=== PATIENT | female | born 1970 | race Caucasian/White ===

== ENCOUNTER 2017-07-29 12:02 | Emergency (ER) | payer OTHER ==
[~2017-07-29] VITALS: Ht 167.6 cm; Wt 104.2 kg
[~2017-07-29 12:02] MED LIST: ALLEGRA D PO; AVENTYL,PAMELOR10 MG PO; Protonix PO; TYLENOL650 MG PR
[2017-07-29 12:20] VITALS: BP 148/82
[2017-07-29] MEDS ORDERED: FLEXERIL10 MG PO (15:19)
[2017-07-29] MEDS ORDERED: MOTRIN800 MG PO (15:19)
== END 2017-07-29 15:46 | disposition home or self-care (01) ==
LOC: EME 12:02
DX: S29.011A Strain of muscle and tendon of front wall of thorax, initial encounter (principal); M62.838 Other muscle spasm; X58.XXXA Exposure to other specified factors, initial encounter; Y93.84 Activity, sleeping; Z88.2 Allergy status to sulfonamides
CPT/HCPCS: 71100; 99281; 99284

== ENCOUNTER 2017-08-04 15:55 | Emergency (ER) | payer OTHER ==
[~2017-08-04] VITALS: Ht 167.6 cm; Wt 104.3 kg
[~2017-08-04 15:55] MED LIST changes: +FLEXERIL10 MG PO; +MOTRIN800 MG PO
[2017-08-04 17:31] LABS: HEMATOCRIT 37.9 % (36.0-46.0); MCH 32.1 PG (29.0-34.0); MCHC 34.8 G/DL (30.0-36.0); MCV 92.2 FL (83-99); MEAN PLAT.VOLUME 9.2 uM^3 (9.5-12.4); PLATELET COUNT 313 K/uL (156-360); RBC DIS.WIDTH-CV 12.7 % (11.8-14.6); RBC DIS.WIDTH-SD 43.1 % (39-53); RED BLOOD COUNT 4.11 M/uL (3.80-5.20); WHITE BLOOD COUNT 7.3 K/uL (4.1-10.2)
[2017-08-04 17:45] LABS: CHLORIDE 106 mEq/L (99-109); POTASSIUM 4.3 mEq/L (3.7-5.4); SODIUM 137 mEq/L (136-147)
[2017-08-04 17:45] LABS: ADD MIUA? YES; BILIRUBIN NEGATIVE; BLOOD MODERATE; COLOR STRAW ((YELLOW)); GLUCOSE (STRIP) NEGATIVE; KETONES 20; LEUKOCYTES NEGATIVE; NITRITE NEGATIVE; PROTEIN (STRIP) NEGATIVE; SPECIFIC GRAVITY 1.011 (1.000-1.030); UROBILINOGEN 0.2 MG/DL (0.2-1.0)
[2017-08-04] MEDS ORDERED: ZANTAC75 M1 PO (17:45)
[2017-08-04 17:47] LABS: BACTERIA NONE SEEN /HPF; EPITHELIAL CELLS RARE /HPF; MUCUS NONE SEEN /LPF; RED BLOOD CELLS 0-5 /HPF (0-5); WHITE BLOOD CELLS 0-5 /HPF (0-5)
[2017-08-04 17:48] LABS: GLUCOSE 97 mg/dL (70-99)
[2017-08-04 17:49] LABS: ANION GAP 7 MEQ/L (2-14)
[2017-08-04 17:50] LABS: TOTAL BILIRUBIN 0.4 mg/dL (0.0-1.0)
[2017-08-04 17:51] LABS: ALKALINE PHOSPHATASE 72 IU/L (3-129); GFR ESTIMATE (CALCULATED) > 59 mL/min/
[2017-08-04 17:52] LABS: UREA NITROGEN (BUN) 15 mg/dL (9-23)
[2017-08-04 17:55] LABS: LIPASE 21 U/L (1.0-51.0)
[2017-08-04 20:31] VITALS: BP 135/84
== END 2017-08-04 20:32 | disposition home or self-care (01) ==
LOC: EME 15:55
PROVIDERS: Physician Assistant
DX: R10.9 Unspecified abdominal pain (principal); M41.84 Other forms of scoliosis, thoracic region; Z87.891 Personal history of nicotine dependence
CPT/HCPCS: 71020; 74176; 80053; 81003; 83690; 85027; 99281; 99284